=== PATIENT | female | born 1990 ===

== ENCOUNTER 2019-12-31 09:01 | Outpatient (CLI) | payer OTHER ==
[2019-12-31 16:15] LABS: SARS-CoV-2 MS2 Positive; SARS-CoV-2 N Gene Negative; SARS-CoV-2 S Gene Negative; SARS-CoV-2 by NAA Not Detected (NotDetected); SARS-CoV-2 orf1ab Negative
== END 2019-12-31 09:02 | disposition home or self-care (01) ==
LOC: LABBT 09:01
PROVIDERS: ATTEND Emergency Medicine
DX: Z20.828 Contact with and (suspected) exposure to other viral communicable diseases (principal)
CPT/HCPCS: 87635; U0003

== ENCOUNTER 2020-01-03 10:16 | Inpatient (IN) | payer OTHER, SELFPAY ==
--- NOTE | 2020-01-03 08:19 | PDOC.FPRHP ---
- History of Present Illness Chief Complaint: rLTCS History of Present Illness: Ms Hagan is a 29yo at 39.2wks by 20.5wk US who presents for scheduled rLTCS. Endorses FM. Denies VB/discharge, LOF, CTX. 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 Hx of cocaine use and hx of tobacco use in . - Review of Systems General: denies: fever/chills, weight/appetite/sleep changes ENT: denies: nasal congestion, rhinorrhea Respiratory: denies: cough, congestion, shortness of breath Cardiovascular: denies: chest pain, edema Gastrointestinal: denies: nausea, vomiting, abdominal pain Genitourinary: denies: dysuria Skin: denies: rashes, lesions - Vital signs BP: [] HR: [] RR: [] Tmax: [] Pox: []% on [] Wt: [] FMR H&P: Results - Labs Result Diagrams: 01/03/20 10:54 FMR H&P: A/P - Plan 29yo presents at 39.2wks for scheduled rLTCS and RRS sIUP - Confirmed cephalic [facility] RRS approval in chart - Will proceed with planned C/S FMR H&P: Upper Level - Plan Date/Time: 01/03/20 0818 I, [], have evaluated this patient and agree with findings/plan as outlined by internet designer resident. Pertinent changes/additions are listed here.
[~2020-01-03 10:16] MED LIST: Bicitra 30 ML UDCUP PO SCH; CEFAZOLIN 2 GM in Premix Bag 1 BAG IVPB SCH; Ondansetron PF 4 MG/2 ML Vial IVP PRN; Promethazine HCl 25 MG/ML VIAL IM PRN; hydrALAZINE 20 MG/ML VIAL SLOW IVP PRN
[2020-01-03] MEDS: Lactated Ringer's 1,000 ML IV SCH ×2 (10:20→18:20)
[2020-01-03 11:11] VITALS: BMI 30.9
[2020-01-03 11:12] LABS: Hemoglobin 13.4 g/dL (12.0-16.0); Mean Corpuscular HGB CONC 34.1 g/dL (32.0-36.0); Mean Corpuscular Hemoglobin 29.9 pg (27.0-31.0); Mean Corpuscular Volume 87.8 fL (78.0-98.0); Mean Platelet Volume 8.1 fL (7.4-10.4); Platelet Count 360 thou/uL (130-400); RBC Distribution Width 13.2 % (11.5-14.5); Red Blood Cell (RBC) Count 4.47 mill/uL (4.20-5.40); White Blood Cell (WBC) Count 13.2 thou/uL (4.8-10.8)
--- NOTE | 2020-01-03 11:52 | PDOC.FPROB ---
FMR OB H&P: HPI - History of Present Illness Chief Complaint: rLTCS and RRS Indentification: 29yo at 39.2wks by 20.5wk US History of Present Illness: Ms Hagan is a 29yo at 39.2wks by 20.5wk US who presents for scheduled rLTCS. Endorses FM. Denies VB/discharge, LOF, CTX. Primary Care Physician: Catrachito FMR OB H&P: Current - Care : 2 Para: 1001 Gestational age: 39.2wks Due date: 01/08/20 Dating Criteria: 20.5wk US Total weight gain: 36lb - OB Labs Blood type: A RH: positive Antibody Screen: negative HIV: negative RPR: negative HepBsAg: negative Rubella: immune Quad screen: negative Urine drug screen: negative Gonorrhea: negative Chlamydia: negative Pap Smear: NILM 08/28 1 hour gtt: 180 3 hour GTT: Declined A1c: 5.6 Additional labs: Kiddie Kist carrier screen positive for alpha thalassemia and cystic fibrosis. 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 Hx of cocaine use and hx of tobacco use in . - Family History Family History: FHx: Daughter- CF, Mother- HTN & ovarian CA, MGM- Cervical Ca FMR OB H&P: Medications - Current Home Medications: Medication Instructions Recorded Confirmed Type Vitamin 1 tablet PO DAILY 01/03/20 01/03/20 History Allergies/Adverse Reactions: Allergies Allergy/AdvReac Type Severity Reaction Status Date / Time No Known Allergies Allergy Unverified 01/03/20 10:53 FMR OB H&P: ROS - Review of Systems General: denies: fever/chills, weight/appetite/sleep changes, fatigue Eyes: denies: eye pain, vision changes ENT: denies: nasal congestion, rhinorrhea, sore throat Cardiovascular: denies: chest pain, edema Respiratory: denies: cough, shortness of breath Gastrointestinal: denies: abdominal pain, vomiting Genitourinary (Female): denies: dysuria, vaginal discharge, vaginal bleeding, contractions Neurologic: denies: weakness, headache Integumentary: denies: rash, lesions FMR OB H&P: Vital Signs - Maternal Vital signs: BP: 107/68 HR: 92 RR 18 O2 sat 98% on RA Temp 97.8F - Heart Tones Baseline: 140 Variability: moderate Deceleration: absent Category: category 1 FMR OB H&P: Physical Exam - Physical Exam General: NAD, awake, alert and oriented HEENT: normocephalic and atraumatic, no scleral icterus, grossly normal hearing Neck: supple, trachea midline Heart: pulses present, no edema General: no respiratory distress Abdomen: soft, gravid, non-tender Musculoskeletal: pulses present, no misalignment/asymmetry, no atrophy Neurological: no focal deficit Skin: no rash, good tugor Lymphatic: no unusual bruising or bleeding Psychiatric: intact recent and remote memory, good judgement and insight, normal mood and affect - Pelvic Exam Vulva: normal hair distribution, no lesions, no blood Membranes: Intact Presentation: Cephalic by US Estimated Weight: 6 lbs FMR OB H&P: Results - Labs Lab results: Laboratory Results - last 24 hr 01/03/20 01/03/20 10:52 10:54 WBC 13.2 H RBC 4.47 Hgb 13.4 Hct 39.2 MCV 87.8 MCH 29.9 MCHC 34.1 RDW 13.2 Plt Count 360 MPV 8.1 Blood Type A POSITIVE FMR OB H&P: A/P Disposition: 29yo presents at 39.2wks for scheduled rLTCS and RRS sIUP - Confirmed cephalic presentation with [facility] - RRS approval in chart - Will proceed with planned C/S Discussion: Date/Time: 01/03/20 0541 This H&P was discussed with Dr. Santoyo who agrees with the above documentation and plan.
[2020-01-03 11:53] LABS: HBSAg Index 0.17 S/CO (0-0.99); Hep B Surf Ag Non-Reactive S/CO (NonReactive); Syphilis Antibody Nonreactive (Nonreactive); Syphilis Antibody Index 0.03 S/CO (<1.00 Non-Reactive)
[2020-01-03] MEDS ORDERED: Oxytocin 10 UNITS/ML VIAL ONE ×3 (12:01→12:49)
[2020-01-03] MEDS ORDERED: ePHEDrine 50 MG/ML VIAL ONE (12:01)
[2020-01-03] MEDS ORDERED: Ondansetron PF 4 MG/2 ML Vial ONE (12:01)
[2020-01-03] MEDS ORDERED: PHENYLEPHRINE-NS 100 MCG/ML 10 ML SYRINGE ONE (12:01)
[2020-01-03 12:07] LABS: Amphetamine Not Detected (NotDetected); Barbiturates Screen Not Detected (NotDetected); Benzodiazepine Screen Not Detected (NotDetected); Cocaine Metabolite Screen Not Detected (NotDetected); Medtox Control Line Valid? VALID (VALID); Medtox Reader # READER 4; Methadone Not Detected (NotDetected); Methamphetamine Not Detected (NotDetected); Opiate Screen Not Detected (NotDetected); Oxycodone Screen Not Detected (NotDetected); Phencyclidine (PCP) Not Detected (NotDetected); THC/Cannabinoid Screen Not Detected (NotDetected); Tricyclic Screen Not Detected (NotDetected)
[2020-01-03] MEDS ORDERED: Ketamine 50 MG/ML (10ML VIAL) ONE (12:29)
[2020-01-03] MEDS ORDERED: Midazolam HCl 2 mg/2 ml Vial ONE ×2 (12:34→13:14)
[2020-01-03] MEDS ORDERED: Naloxone HCl 0.4 mg/ml Vial IVP PRN ×2 (13:04)
[2020-01-03] MEDS ORDERED: Ondansetron PF 4 MG/2 ML Vial IVP PRN (13:04)
[2020-01-03] MEDS ORDERED: Promethazine HCl 25 MG/ML VIAL IM PRN (13:04)
[2020-01-03] MEDS ORDERED: Promethazine HCl 25 MG SUPP PR PRN (13:04)
[2020-01-03] MEDS ORDERED: diphenhydrAMINE 50 MG/ML VIAL IVP PRN (13:04)
[2020-01-03] MEDS ORDERED: Naloxone HCl 0.4 mg/ml Vial IV PRN (13:04)
[2020-01-03] MEDS ORDERED: Communication Order-Pharmacy FS SCH (13:15)
--- NOTE | 2020-01-03 13:37 | OP ---
DATE OF PROCEDURE: 01/03/2020 This is risk reduction salpingectomy note. TIME OF SURGERY: Roughly about, I guess 1255 hours. It is now about 1316 hours. In brief, I was asked to assist after hysterotomy was closed and after the baby was born on this patient, who had been cleared by the hospital policy for risk reduction salpingectomy. PROCEDURE: Risk reduction salpingectomy at FIRST SURGEON: Irma Winston MD SECOND SURGEON: Sally Amado MD. FIRST METAL BONDING PRESS OPERATOR: MD Dr. Natanael COLINDRES was also present and scrubbed for the case, but was not directly involved in this procedure. We performed a bilateral salpingectomy from just proximal to the mid section of the tube (isthmic) down to the level of the fimbria. This was done using #1 chromic ties and hemostasis was assured bilaterally. We did not get more proximal because of the varicosities by the isthmic portion of the tube. This was a near total salpingectomy, from the proximal region (isthmic) to distal including the fimbrial ends. Ovaries were not affected and they looked grossly normal. My blood loss for this portion of the surgery was minimal to none. Job ID: [id number] [facility] SYSTEM[facility]fred[facility]
[2020-01-03] MEDS ORDERED: Ketorolac Tromethamine 30 MG/ML VIAL ONE (15:18)
[2020-01-03] MEDS: Ketorolac Tromethamine 30 MG/ML VIAL IVP PRN ×2 (15:19→21:22)
[2020-01-03] MEDS ORDERED: diphenhydrAMINE 50 MG/ML VIAL ONE (15:29)
--- NOTE | 2020-01-03 15:57 | PDOC.OPDEL ---
OB Operative/Delivery Note - Additional Findings/Plan Compilations/Other Findings: Procedure Note Date of Procedure: 01/03/20 Resident Surgeon: Irma Winston MD PGY-3, Sally Amado MD PGY-3 Attending Surgeon: Fidel Santoyo MD. Present for risk reducing salpingectomy, Levon Best MD Procedure: Repeat low transverse caesarean section Preoperative Diagnosis: 1) Term intrauterine 2) Previous 3) Hx of Cocaine use 4) Failed 1hr GTT, declined 3hr 5) Hx of Tobacco use in 6) Cystic Fibrosis and Alpha Thalassemia carrier 7) STEPHANIE/MDD on Fluoxetine Postoperative Diagnosis: 1) Term intrauterine , delivered 2) Previous 3) Hx of Cocaine use 4) Failed 1hr GTT, declined 3hr 5) Hx of Tobacco use in 6) Cystic Fibrosis and Alpha Thalassemia carrier 7) STEPHANIE/MDD on Fluoxetine 8) Risk Reducing Salpingectomy Anesthesia: spinal Indications: The patient is a 29 year old female at 39.2 weeks gestation who presents for a repeat scheduled delivered at 1236 on 01/02. Procedure in Detail: After risks, benefits, and alternatives were explained to the patient, she gave informed consent. Pre-operative antibiotics included Cefazolin 2 gram IV. The patient was taken to the operating room and spinal anesthesia was initiated. She was placed in the supine position with a left tilt and prepped and draped in usual sterile fashion. A Pfannenstiel incision was made with a scalpel and carried down to the level of the fascia which was sharply nicked. The fascial cut was extended bilaterally with Garcia sissors. The inferior and superior edges of the cut fascial edges were elevated with Tapan clamps and the underlying rectus muscles were sharply and bluntly dissected free. The recti were divided digitally and retracted manually. The peritoneum was entered bluntly and retracted manually. Chino-O placed. A low transverse score was made with the scalpel and the uterus was entered in the midline with the scalpel. Clear fluid was seen. The hysterotomy was extended manually. The was noted to be vertex and was easily delivered by fundal pressure. Mouth and nares were bulb suctioned. Cord clamped and cut and grossly normal male was handed to waiting nurse. Cord blood was obtained. Placenta was expectantly extracted, found to be intact with 3 vessel cord and discarded. The uterus was externalized and the endometrium was curetted with a dry lap. The uterus was closed with a running locking #1 Monocryl suture. Following this hemostasis was noted. Please see note by Dr Levon Best for risk reducing salpingectomy note. The abdomen was suctioned free of clots. The uterus was internalized and the hysterotomy was again noted to be hemostatic. The fascia was closed with a running non-locking 0-PDS suture. The subcutaneous tissue was irrigated and there were no bleeders. Subcutaneous tissue was closed with 2-0 plain gut. The skin was approximated with 4-0 Monocryl and a pressure dressing was placed. All counts were correct. The patient tolerated the procedure well and was taken to the recovery room in stable condition. Quantitative Blood Loss: 513ml Complications: None Specimens: Cord blood sent to lab for blood type Findings: Grossly normal male/female with Apgars of 8 and 9. Grossly normal placenta with 3 vessel cord discarded. Drains: Zambrano to gravity draining clear urine
[2020-01-03] MEDS ORDERED: Misoprostol 200 MCG TAB PR PRN (16:37)
[2020-01-03] MEDS ORDERED: Methylergonovine 0.2 MG/ML VIAL IM PRN (16:37)
[2020-01-03] MEDS ORDERED: Methylergonovine 0.2 MG TAB PO PRN (16:37)
[2020-01-03] MEDS ORDERED: Lanolin Ointment 7 GM TUBE TOP PRN (16:37)
[2020-01-03] MEDS ORDERED: NS / Oxytocin 40 units/1000ml 1,000 ML IV SCH (16:37)
--- NOTE | 2020-01-03 17:11 | PDOC.OBPPN ---
FMR OB PN: Subj - Interval History Hospital Day: 1 Day: 0 Chief Complaint: pain, itching, hungry Indentification: G2 now P2002 who is PP day #0 s/p TINY rLTCS w/ RRS Interval History: Stable since delivery on PP. FMR OB PN: Obj - Maternal Vital signs: BP: 104/57 HR: 65 RR: 16 Tmax: 97.6F Pox: 100% on RA Wt: 79 kg - Urine output I&O: 01/02/20 01/03/20 01/04/20 06:59 06:59 06:59 Output Total 683 Balance -683 - Lochia Lochia: WNLs - Pain Management Pain scale: 9 Intervention: oral medication FMR OB PN: Exam - Physical Exam General: NAD, awake, alert and oriented HEENT: normocephalic and atraumatic, MMM, grossly normal vision, grossly normal hearing Neck: supple, FROM Heart: RRR, normal S1/S2, no murmurs/rubs/gallops General: CTAB, no respiratory distress Abdomen: soft, fundus(cm) (firm above umbilicus), bowel sound present Musculoskeletal: normal gait and station, FROM in all four extremities Neurological: cranial nerves II through XII intact, sensation to pain,touch and proprioception grossly normal, no focal deficit Skin: no rash, good tugor : bandage intact, no drainage Psychiatric: intact recent and remote memory, good judgement and insight, normal mood and affect - Pelvic Exam : normal lochia FMR OB PN: Data - Labs Lab results: Laboratory Results - last 24 hr 01/03/20 01/03/20 01/03/20 10:52 10:54 10:54 WBC RBC Hgb Hct MCV MCH MCHC RDW Plt Count MPV Urine Opiates Screen Ur Oxycodone Screen Urine Methadone Screen Ur Propoxyphene Screen Ur Barbiturates Screen Ur Tricyclics Screen Ur Phencyclidine Scrn Ur Amphetamines Screen U Methamphetamines Scrn U Benzodiazepines Scrn U Cocaine Metab Screen U Cannabinoids Screen Drug Screen Comment Syphilis IgG/IgM Ab Nonreactive Hep Bs Antigen Non-Reactive Blood Type A POSITIVE Antibody Screen 01/03/20 01/03/20 01/03/20 10:54 10:54 11:36 WBC 13.2 H RBC 4.47 Hgb 13.4 Hct 39.2 MCV 87.8 MCH 29.9 MCHC 34.1 RDW 13.2 Plt Count 360 MPV 8.1 Urine Opiates Screen Not Detected Ur Oxycodone Screen Not Detected Urine Methadone Screen Not Detected Ur Propoxyphene Screen Not Detected Ur Barbiturates Screen Not Detected Ur Tricyclics Screen Not Detected Ur Phencyclidine Scrn Not Detected Ur Amphetamines Screen Not Detected U Methamphetamines Scrn Not Detected U Benzodiazepines Scrn Not Detected U Cocaine Metab Screen Not Detected U Cannabinoids Screen Not Detected Drug Screen Comment Syphilis IgG/IgM Ab Hep Bs Antigen Blood Type A POSITIVE Antibody Screen NEGATIVE FMR OB PN: A/P - Problem List (1) care following delivery Current Visit: Yes Status: Acute Code(s): Z39.2 - ENCOUNTER FOR ROUTINE FOLLOW-UP (2) Cocaine use complicating Current Visit: Yes Status: Acute Code(s): O99.320 - DRUG USE COMPLICATING , UNSPECIFIED TRIMESTER; F14.90 - COCAINE USE, UNSPECIFIED, UNCOMPLICATED Disposition: 29YO who is PP day #0 s/p rLTCS w/ RRS @ 39.2 WGA. 1. PP day #0 s/p rLTCS: Reports 9/10 pain but just received IV toradol prior to exam. Vitals WNLs since delivery. Minimal bleeding since delivery. Bandage clean, dry & intact & siddiqi still in place. Tolerating PO. Continue routine PP C/S care. 2. h/o cocaine use in : Negative UDS on admission. MDS & UDS on infant pending. CM consulted. 3. Failed 1hr GTT: Aware, needs a 2hr GTT @ 6wk PP visit. 4. Tobacco use in : Aware, will encourage cessation 5. STEPHANIE/MDD: Aware, on fluoxetine antepartum. Will continue PP. 6. CF & alpha thal carrier: Aware, screen antepartum WNLs. 7. FH of cervical & ovarian CA: Aware, s/p RRS. May benefit from BRCA screening outpatient. Dispo: Will continue routine PP C/S care w/ anticipated LOS at least 2 midnights pending clinical course. Discussion: Date/Time: 01/03/20 0402 This H&P was discussed with Dr. Santoyo who agrees with the above documentation and plan.
[2020-01-03] MEDS ORDERED: Meperidine HCl/PF 25 MG/ML VIAL SLOW IVP SCH (18:00)
[2020-01-03] MEDS ORDERED: Acetaminophen 500 MG TAB PO SCH (18:00)
[2020-01-03] MEDS ORDERED: Meperidine HCl/PF 25 MG/ML VIAL SLOW IVP PRN (19:01)
[2020-01-03] MEDS: diphenhydrAMINE 25 MG CAP PO PRN ×2 (19:48→23:47)
[2020-01-03] MEDS: Simethicone Chewable 80 MG TAB PO PRN ×2 (19:48→23:47)
[2020-01-03] MEDS: Docusate Calcium (SURFAK) 240 MG CAP PO SCH (19:49)
[2020-01-03] MEDS: Ferrous Sulfate 325 MG TAB PO SCH (22:08)
[2020-01-04] MEDS: Lactated Ringer's 1,000 ML IV SCH ×3 (00:02→18:06)
[2020-01-04] MEDS: Simethicone Chewable 80 MG TAB PO PRN (04:04)
[2020-01-04] MEDS: diphenhydrAMINE 25 MG CAP PO PRN (04:04)
[2020-01-04] MEDS: HYDROcodone/Acetaminophen 5/325 mg Tablet PO PRN ×4 (04:09→19:25)
--- NOTE | 2020-01-04 05:51 | PDOC.PP ---
Post Progress Note Post Day #: 1 Subjective: Pain well controlled with meds. Expected amt of lochia. Tolerating PO. Mostly bottle feeding. Catheter has been removed and urinating fine. PO intake tolerated: yes Flatus: yes Ambulation: yes Vital Signs (12 hours) Temp Pulse Resp BP Pulse Ox 01/04/20 04:00 98.1 F 69 16 98/53 L 01/03/20 23:15 98.1 F 86 16 112/59 L 01/03/20 19:45 98.5 F 84 16 104/59 L 99 01/03/20 18:22 98.2 F 84 20 105/50 L Weight Weight 79.379 kg - Physical Examination General: NAD Cardiovascular: no m/r/g, RRR Respiratory: clear to auscultation bilaterally, non-labored breathing Abdominal: + bowel sounds, appropriately TTP Fundus firm & at: umbilicus Skin: CS incision dry & intact (covered with dressing) Neurological: no gross focal deficits Psychiatric: A&Ox3, normal affect Result Diagrams: 01/04/20 05:53 Additional Labs: Post Labs Hep Bs Antigen Non-Reactive S/CO (NonReactive) 01/03/20 10:54 Blood Type A POSITIVE 01/03/20 10:54 - Assessment/Plan 29yo POD#1 s/p rLTCS w/ RRS @39.2wks sIUP, delivered via rLTCS - POD#1, incision closed with sutures - Meeting PP milestones, Encourage ambulation - Contraception: s/p RRS - Total QBL: 721 - Hgb: 13.4-> 11.7 - F/u at [facility] in 1 wk. Hx of cocaine use - Negative UDS on admission and throughout . MDS & UDS on infant pending. CM consulted. Failed 1hr GTT - Declined 3hr, needs a 2hr GTT @ 6wk PP visit. Tobacco use in STEPHANIE/MDD - On fluoxetine antepartum. Continue PP. CF & alpha thal carrier FHx of cervical & ovarian CA - s/p RRS. May benefit from BRCA screening outpatient. Addendum - Attending - Attending Attestation Date/Time: 01/04/20 7532 I personally evaluated the patient and discussed the management with the team. I agree with the History, Examination, Assessment and Plan documented above with any addition or exceptions noted below.
[2020-01-04 06:05] LABS: Hemoglobin 11.7 g/dL (12.0-16.0); Mean Corpuscular HGB CONC 33.7 g/dL (32.0-36.0); Mean Corpuscular Hemoglobin 29.4 pg (27.0-31.0); Mean Corpuscular Volume 87.3 fL (78.0-98.0); Mean Platelet Volume 7.8 fL (7.4-10.4); Platelet Count 343 thou/uL (130-400); RBC Distribution Width 13.2 % (11.5-14.5); Red Blood Cell (RBC) Count 3.98 mill/uL (4.20-5.40); White Blood Cell (WBC) Count 13.3 thou/uL (4.8-10.8)
[2020-01-04] MEDS: Polyethylene Glycol 3350 17 GM Packet PO SCH (08:23)
[2020-01-04] MEDS: FLUoxetine HCl 20 MG CAP PO SCH (08:25)
[2020-01-04] MEDS: Docusate Calcium (SURFAK) 240 MG CAP PO SCH ×2 (08:25→21:58)
[2020-01-04] MEDS: Prenatal Vitamin 1 TAB PO SCH (08:25)
[2020-01-04] MEDS: Ferrous Sulfate 325 MG TAB PO SCH ×2 (08:28→21:00)
[2020-01-04] MEDS: Ibuprofen 800 MG TAB PO SCH ×2 (12:52→21:57)
[2020-01-05] MEDS: Lactated Ringer's 1,000 ML IV SCH ×3 (03:31→17:19)
[2020-01-05] MEDS: HYDROcodone/Acetaminophen 5/325 mg Tablet PO PRN ×3 (03:39→13:45)
[2020-01-05] MEDS: Ibuprofen 800 MG TAB PO SCH ×2 (05:39→13:44)
--- NOTE | 2020-01-05 06:03 | PDOC.PP ---
Post Progress Note Post Day #: 2 Subjective: Pain well controlled with Ledbetter. Ambulating, has not passed gas. Bottle feeding. PO intake tolerated: yes Flatus: no Ambulation: yes Vital Signs (12 hours) Temp Pulse Resp BP Pulse Ox 01/05/20 03:41 98.5 F 82 20 105/66 96 01/05/20 00:46 97.7 F 82 18 109/69 95 01/04/20 20:20 98.0 F 85 22 H 103/58 L 99 Weight Weight 79.379 kg - Physical Examination General: NAD Cardiovascular: no m/r/g, RRR Respiratory: clear to auscultation bilaterally, non-labored breathing Abdominal: + bowel sounds, appropriately TTP Fundus firm & at: umbilicus Skin: CS incision dry & intact Neurological: no gross focal deficits Psychiatric: A&Ox3, normal affect Result Diagrams: 01/04/20 05:53 Additional Labs: Post Labs Hep Bs Antigen Non-Reactive S/CO (NonReactive) 01/03/20 10:54 Blood Type A POSITIVE 01/03/20 10:54 - Assessment/Plan 29yo POD#2 s/p rLTCS w/ RRS @39.2wks sIUP, delivered via rLTCS - POD#2, incision closed with sutures - Meeting PP milestones - Contraception: s/p RRS - Total QBL: 731 - Hgb: 13.4-> 11.7 - F/u at [facility] in 1 wk. Likely home today Hx of cocaine use - Negative UDS on admission and throughout . MDS & UDS on pending. CM consulted. Failed 1hr GTT - Declined 3hr, needs a 2hr GTT @ 6wk PP visit. Tobacco use in STEPHANIE/MDD - On fluoxetine antepartum. Continue PP. CF & alpha thal carrier FHx of cervical & ovarian CA - s/p RRS. May benefit from BRCA screening outpatient. Addendum - Attending - Attending Attestation Date/Time: 01/05/20 0912 I personally evaluated the patient and discussed the management with the team. I agree with the History, Examination, Assessment and Plan documented above with any addition or exceptions noted below. Plan for dc today.
[2020-01-05 09:33] VITALS: BP 114/65
[2020-01-05] MEDS: Polyethylene Glycol 3350 17 GM Packet PO SCH (09:33)
[2020-01-05] MEDS: Prenatal Vitamin 1 TAB PO SCH (09:33)
[2020-01-05] MEDS: Docusate Calcium (SURFAK) 240 MG CAP PO SCH (09:33)
[2020-01-05] MEDS: Ferrous Sulfate 325 MG TAB PO SCH (09:33)
[2020-01-05] MEDS: FLUoxetine HCl 20 MG CAP PO SCH (09:33)
[2020-01-05 12:36] VITALS: TEMP 98
[2020-01-05] MEDS ORDERED: FLU VACC QS2020-21(6MOS UP)/PF 60 MCG/0.5 ML SYRINGE IM ONE (16:45)
== END 2020-01-05 18:02 | disposition home or self-care (01) | DRG 784 ==
LOC: L&D 10:16 → 3SW 16:32
PROVIDERS: ADMIT Family Medicine; ATTEND Family Medicine
PROC: 10D00Z1 Extraction of Products of Conception, Low, Open Approach (ICD-10-PCS; principal; 2020-01-03)
PROC: 0UT70ZZ Resection of Bilateral Fallopian Tubes, Open Approach (ICD-10-PCS; 2020-01-03)
DX: O34.219 Maternal care for unspecified type scar from previous cesarean delivery (principal); E84.9 Cystic fibrosis, unspecified; O99.324 Drug use complicating childbirth; Z37.0 Single live birth; Z3A.39 39 weeks gestation of pregnancy; Z90.49 Acquired absence of other specified parts of digestive tract; D56.0 Alpha thalassemia; F14.90 Cocaine use, unspecified, uncomplicated
CPT/HCPCS: 36415; 51702; 80306; 85027; 86780; 86850; 86900; 86901; 87340; 88302; 90471; 90662; 90732; G0008; G0009; J0690; J1200; J1885; J2250; J2270; J2405; J3490; Q0163